=== PATIENT | female | born 1975 | race Caucasian/White ===

== ENCOUNTER 2017-03-17 11:07 | Emergency (ER) | payer OTHER ==
--- NOTE | 2017-03-17 12:11 | DIAGNOSTIC IMAGING REPORT ---
PROCEDURE: XR FINGER - LEFT INDICATION: TRAUMA TECHNIQUE: A P hand and two views of the left fifth digit. COMPARISON: None. FINDINGS: Normal mineralization. No fractures. Normal osseous alignment. No suspicious soft-tissue calcification or radiodense foreign bodies. Soft tissue swelling over the dorsum of the hand. IMPRESSION: 1. Intact left fifth finger 2. Soft tissue swelling over the dorsum of the hand
--- NOTE | 2017-03-17 12:30 | ED NURSING NOTES ---
Clinical Report - Nurses [facility] [address] [place] [address] 03/17/2017 11:08 Patient: GUILLAUME AVILEZ TRIAGE Triage time 1115. Acuity: LEVEL 4. Chief Complaint: INJURY TO THE LEFT HAND, LEFT LITTLE FINGER and LEFT RING FINGER. --11:31 Lin Nash R.N. 11:15 03/17/17. BP: 169/114. HR: 82. RR: 18. O2 saturation: 100%. Temp: 98.2 F. Pain level now: 05/04. --11:31 Lin Nash R.N. Weight: 107.5 kg stated. Height/Length: 65 inches Per Patient. BMI: 39.5. --11:26 Lin Nash R.N. Medications Ambien Oral 10 mg, at bedtime. --11:29 Lin Nash R.N. Effexor XR Oral 75 mg, daily . --11:30 Lin Nash R.N. Allergies No Known Drug Allergy. --11:24 Lin Nash R.N. History Arrived by private vehicle. Historian: patient. Unaccompanied. Primary physician (nia). This occurred last night. Mechanism of injury: she sustained a crush injury (caught hand in car door. redness to MP joints of 4th and 5th fingers, with pain and redness down all of 5th digit. some swelig and pain in 3rd and 4th digits as well). PAST MEDICAL HX: The patient has had a hysterectomy. ( depression, anxiety , OCD , chronic headaches). SURGERY HX: . Cholecystectomy. Had hysterectomy. SOCIAL HX: Never smoker. Occasional alcohol use. No drug use. --11:31 Lin Nash R.N. Interventions ID band on patient. To treatment room. --11:31 Lin Nash R.N. PHYSICAL ASSESSMENT 11:15. Ambulatory to room. GENERAL / NEURO / PSYCH: Oriented X 4. Alert. Appears in pain. EXTREMITIES: Limited ROM present. Capillary refill is less than 2 seconds in the extremities. Left hand: tenderness and swelling. Left ring finger: tenderness and swelling. Left little finger: tenderness and swelling. ( swelling and rednes to 4th and 5th MP jint areas, with redness down all of 5th digit, and part way down 4th digit). SKIN: Skin is warm and dry. --11:32 Lin Nash R.N. NURSING PROGRESS NOTES 12:23 03/17/2017 Motrin PO Tablets 800 mg given. Allergies verified and confirmed 5 rights. --12:28 Lin Nash R.N. 11:15. Cold pack applied. Patient gowned. Reassurance given. Patient identifiers checked. Call light placed in reach. Side rails up. Bed placed in lowest position. Patient ready for evaluation- chart flagged. --12:53 Lin Nash R.N. 11:40. ( port x-ray here to do finger films). --12:55 Lin Nash R.N. 12:23 meds given. --12:55 Lin Nash R.N. 12:30. Aluminum-foam finger splint applied to left little finger by tech. Distal pulses intact, sensation intact and motor within normal limits (by RICARDA Garcia). --12:56 Lin Nash R.N. DISPOSITION / DISCHARGE 12:40. Condition at departure: unchanged and stable. No learning barriers present. Discharge instructions provided and reviewed with the patient. Reviewed medication(s) (motrin, diclofenac). Reviewed splint care instructions (ice, elelvate,). Patient verbalized understanding. Written instructions provided in Kyrgyz. The patient was discharged home. She left the Emergency Department ambulatory and via private vehicle. Patient driving. --12:53 Lin Nash R.N. 12:40 03/17/17. BP: 138/91. HR: 82. RR: 18. O2 saturation: 98%. Temp: deferred. Pain level now: 810. --12:53 Lin Nash R.N. Locked/Released at 03/17/2017 12:57 by Lin Nash R.N.
--- NOTE | 2017-03-17 12:30 | ED CLINICAL REPORT ---
Clinical Report - Physicians/Mid Levels [facility] [address] [place] [address] 03/17/2017 11:08 Patient: GUILLAUME AVILEZ Time Seen: 11:20; initial patient contact. Arrived- By private vehicle. Historian- patient. HISTORY OF PRESENT ILLNESS Chief Complaint: Injury to the left 5th (little) finger. The injury happened last night. Occurred at home. The patient sustained a crush injury- caught hand in door. Patient is experiencing mild pain. Patient denies injury to the head or neck. REVIEW OF SYSTEMS The patient has had swelling, and tingling. No numbness, weakness or skin laceration. All systems otherwise negative, except as recorded above. PAST HISTORY hysterectomy depression, anxiety , OCD , chronic headaches. SOCIAL HISTORY Never smoker. Occasional alcohol use. No drug use. ADDITIONAL NOTES The nursing notes have been reviewed. PHYSICAL EXAM Vital Signs: 03/17/2017 11:15 BP: 169/114. HR: 82. RR: 18. O2 saturation: 100%. Temp: 98.2 F. Pain level now: 8. Have been reviewed. Hypertensive. Heart rate normal. Respiratory rate normal. Temperature normal. Oxygen saturation normal. Appearance: Alert. Oriented X3. No acute distress. Skin: Skin warm and dry. Skin intact. Extremities: Right little finger: mild erythema, moderate tenderness and swelling and small ecchymosis of the PIP joint; limited movement secondary to pain and swelling (diminished flexion and extension). Neurovascular intact distally. No deformity. No subungual hematoma or amputation present. No wrist injury. No hand injury. Hand and wrist exam otherwise negative. Extremities otherwise negative. Neuro, Vascular and Tendons: Vascular status intact. Sensation intact. Motor intact. Tendon function intact. Neuro: Oriented X 3. No motor deficit. No sensory deficit. LABS, X-RAYS, AND EKG Lt UE Digits X-ray: No fracture. Normal alignment. No bony lesion, air in the soft tissue or foreign body. Soft tissue swelling. Views: AP, lateral and oblique. Technique: good. The X-rays were independently viewed by me and interpreted contemporaneously by me. Prior films were not available for comparison. PROGRESS AND PROCEDURES Disposition: Discharged home in good and improved condition. Condition: good. CLINICAL IMPRESSION Single contusion with soft tissue hematoma to the left little finger.No left fingernail injury. INSTRUCTIONS Apply ice for 20 minutes four times a day until better. Don't apply ice directly to skin. Your Current Medications: CONTINUE TAKING THE FOLLOWING MEDICATIONS: Ambien Oral : 10 mg at bedtime. Effexor XR Oral : 75 mg daily. Prescription Medications: Diclofenac 50 mg tablets: take 1 tablet orally every 8 hours as needed for pain or stiffness. Dispense thirty (30). No refill. Follow-up: Follow up with your doctor in three days if not better. Call for an appointment. Screening today revealed the patient's blood pressure to be in the hypertensive range. The patient should follow up with a primary care provider for blood pressure management. (Electronically signed by Shaka Mayen Dr. 03/18/2017 8:53)
--- NOTE | 2017-03-17 12:30 | ED ORDER SUMMARY ---
..... Patient: GUILLAUME AVLIEZ OrderSheet [facility] VisitID: [id number] [place] [address] 42y, F Registration Date/Time: 03/17/2017 ORDER SHEET Weight: 107.5 kg (stated) Allergies: No Known Drug Allergy GENERAL ORDERS: Finger Left (5th) Urgent (11:26 03/17/2017 Katya Neff) (Ack 11:32 ENZOoerowen) (12:13 ENZOoerowen) Splint (Finger) (Left) (Small) (Aluminum Foam) (12:29 03/17/2017 DDean R.N. verbal order read back to Katya Neff) (12:49 DDean R.N.) MEDICATION ORDERS: Motrin PO 800 mg (NOW) (11:58 03/17/2017 Katya Neff) (Ack 12:22 DDean R.N.) (12:28 DDean R.N.) IV FLUIDS: ORDER SHEET NOTES: [Electronically signed by Lin Nash R.N. (12:57 03/17/2017)] [Electronically signed by Shaka Mayen Dr. (08:53 03/18/2017)] [Electronically locked/signed by Lin Nash R.N. (12:57 03/17/2017)]
--- NOTE | 2017-03-17 12:30 | ED NURSING NOTES ---
Clinical Report - Nurses [facility] [address] [place] [address] 03/17/2017 11:08 Patient: GUILLAUME AVILEZ TRIAGE Triage time 1115. Acuity: LEVEL 4. Chief Complaint: INJURY TO THE LEFT HAND, LEFT LITTLE FINGER and LEFT RING FINGER. --11:31 Lin Nash R.N. 11:15 03/17/17. BP: 169/114. HR: 82. RR: 18. O2 saturation: 100%. Temp: 98.2 F. Pain level now: 05/04. --11:31 Lin Nash R.N. Weight: 107.5 kg stated. Height/Length: 65 inches Per Patient. BMI: 39.5. --11:26 Lin Nash R.N. Medications Ambien Oral 10 mg, at bedtime. --11:29 Lin Nash R.N. Effexor XR Oral 75 mg, daily . --11:30 Lin Nash R.N. Allergies No Known Drug Allergy. --11:24 Lin Nash R.N. History Arrived by private vehicle. Historian: patient. Unaccompanied. Primary physician (nia). This occurred last night. Mechanism of injury: she sustained a crush injury (caught hand in car door. redness to MP joints of 4th and 5th fingers, with pain and redness down all of 5th digit. some swelig and pain in 3rd and 4th digits as well). PAST MEDICAL HX: The patient has had a hysterectomy. ( depression, anxiety , OCD , chronic headaches). SURGERY HX: . Cholecystectomy. Had hysterectomy. SOCIAL HX: Never smoker. Occasional alcohol use. No drug use. --11:31 Lin Nash R.N. Interventions ID band on patient. To treatment room. --11:31 Lin Nash R.N. PHYSICAL ASSESSMENT 11:15. Ambulatory to room. GENERAL / NEURO / PSYCH: Oriented X 4. Alert. Appears in pain. EXTREMITIES: Limited ROM present. Capillary refill is less than 2 seconds in the extremities. Left hand: tenderness and swelling. Left ring finger: tenderness and swelling. Left little finger: tenderness and swelling. ( swelling and rednes to 4th and 5th MP jint areas, with redness down all of 5th digit, and part way down 4th digit). SKIN: Skin is warm and dry. --11:32 Lin Nash R.N. NURSING PROGRESS NOTES 12:23 03/17/2017 Motrin PO Tablets 800 mg given. Allergies verified and confirmed 5 rights. --12:28 iLn Nash R.N. 11:15. Cold pack applied. Patient gowned. Reassurance given. Patient identifiers checked. Call light placed in reach. Side rails up. Bed placed in lowest position. Patient ready for evaluation- chart flagged. --12:53 Lin Nash R.N. 11:40. ( port x-ray here to do finger films). --12:55 Lin Nash R.N. 12:23 meds given. --12:55 Lin Nash R.N. 12:30. Aluminum-foam finger splint applied to left little finger by tech. Distal pulses intact, sensation intact and motor within normal limits (by RICARDA Garcia). --12:56 Lin Nash R.N. DISPOSITION / DISCHARGE 12:40. Condition at departure: unchanged and stable. No learning barriers present. Discharge instructions provided and reviewed with the patient. Reviewed medication(s) (motrin, diclofenac). Reviewed splint care instructions (ice, elelvate,). Patient verbalized understanding. Written instructions provided in Vietnamese. The patient was discharged home. She left the Emergency Department ambulatory and via private vehicle. Patient driving. --12:53 Lin Nash R.N. 12:40 03/17/17. BP: 138/91. HR: 82. RR: 18. O2 saturation: 98%. Temp: deferred. Pain level now: 810. --12:53 Lin Nash R.N. Locked/Released at 03/17/2017 12:57 by Lin Nash R.N.
--- NOTE | 2017-03-17 12:30 | ED CLINICAL REPORT ---
Clinical Report - Physicians/Mid Levels [facility] [address] [place] [address] 03/17/2017 11:08 Patient: GUILLAUME AVILEZ Time Seen: 11:20; initial patient contact. Arrived- By private vehicle. Historian- patient. HISTORY OF PRESENT ILLNESS Chief Complaint: Injury to the left 5th (little) finger. The injury happened last night. Occurred at home. The patient sustained a crush injury- caught hand in door. Patient is experiencing mild pain. Patient denies injury to the head or neck. REVIEW OF SYSTEMS The patient has had swelling, and tingling. No numbness, weakness or skin laceration. All systems otherwise negative, except as recorded above. PAST HISTORY hysterectomy depression, anxiety , OCD , chronic headaches. SOCIAL HISTORY Never smoker. Occasional alcohol use. No drug use. ADDITIONAL NOTES The nursing notes have been reviewed. PHYSICAL EXAM Vital Signs: 03/17/2017 11:15 BP: 169/114. HR: 82. RR: 18. O2 saturation: 100%. Temp: 98.2 F. Pain level now: 8. Have been reviewed. Hypertensive. Heart rate normal. Respiratory rate normal. Temperature normal. Oxygen saturation normal. Appearance: Alert. Oriented X3. No acute distress. Skin: Skin warm and dry. Skin intact. Extremities: Right little finger: mild erythema, moderate tenderness and swelling and small ecchymosis of the PIP joint; limited movement secondary to pain and swelling (diminished flexion and extension). Neurovascular intact distally. No deformity. No subungual hematoma or amputation present. No wrist injury. No hand injury. Hand and wrist exam otherwise negative. Extremities otherwise negative. Neuro, Vascular and Tendons: Vascular status intact. Sensation intact. Motor intact. Tendon function intact. Neuro: Oriented X 3. No motor deficit. No sensory deficit. LABS, X-RAYS, AND EKG Lt UE Digits X-ray: No fracture. Normal alignment. No bony lesion, air in the soft tissue or foreign body. Soft tissue swelling. Views: AP, lateral and oblique. Technique: good. The X-rays were independently viewed by me and interpreted contemporaneously by me. Prior films were not available for comparison. PROGRESS AND PROCEDURES Disposition: Discharged home in good and improved condition. Condition: good. CLINICAL IMPRESSION Single contusion with soft tissue hematoma to the left little finger.No left fingernail injury. INSTRUCTIONS Apply ice for 20 minutes four times a day until better. Don't apply ice directly to skin. Your Current Medications: CONTINUE TAKING THE FOLLOWING MEDICATIONS: Ambien Oral : 10 mg at bedtime. Effexor XR Oral : 75 mg daily. Prescription Medications: Diclofenac 50 mg tablets: take 1 tablet orally every 8 hours as needed for pain or stiffness. Dispense thirty (30). No refill. Follow-up: Follow up with your doctor in three days if not better. Call for an appointment. Screening today revealed the patient's blood pressure to be in the hypertensive range. The patient should follow up with a primary care provider for blood pressure management. (Electronically signed by Shaka Mayen Dr. 03/18/2017 8:53)
--- NOTE | 2017-03-17 12:30 | ED ORDER SUMMARY ---
..... Patient: GUILLAUME AVILEZ OrderSheet [facility] VisitID: [id number] [address] [place] [address] 42y, F Registration Date/Time: 03/17/2017 ORDER SHEET Weight: 107.5 kg (stated) Allergies: No Known Drug Allergy GENERAL ORDERS: Finger Left (5th) Urgent (11:26 03/17/2017 Katya Neff) (Ack 11:32 ENZOoerowen) (12:13 ENZOoerowen) Splint (Finger) (Left) (Small) (Aluminum Foam) (12:29 03/17/2017 DDean R.N. verbal order read back to Katya Neff) (12:49 DDean R.N.) MEDICATION ORDERS: Motrin PO 800 mg (NOW) (11:58 03/17/2017 Katya Neff) (Ack 12:22 DDean R.N.) (12:28 DDean R.N.) IV FLUIDS: ORDER SHEET NOTES: [Electronically signed by Lin Nash R.N. (12:57 03/17/2017)] [Electronically signed by Shaka Mayen Dr. (08:53 03/18/2017)] [Electronically locked/signed by Lin Nash R.N. (12:57 03/17/2017)]
--- NOTE | 2017-03-18 08:53 | ED MED RECONCILIATION SUMMARY ---
Patient: GUILLAUME AVILEZ Medication Reconciliation Report [facility] VisitID: [id number] [address] [place] [address] 42y, F Registration Date/Time: 03/17/2017 Weight: 107.5 kg Height/Length: 65 in. BMI: 39.5 ALLERGIES: No Known Drug Allergy The patient's Home Medications are listed below: CONTINUE TAKING THE FOLLOWING MEDICATIONS: Ambien Oral 10 mg, at bedtime Effexor XR Oral 75 mg, daily The source(s) of the original Home Medication information: Not obtained. The following Medications were given to the patient in the Emergency Department: Motrin [PO] PO 800 mg, administered: 03/17/2017 12:23:00 PM The following Medications were prescribed to the patient: Diclofenac 50 mg tablets: take 1 tablet orally every 8 hours as needed for pain or stiffness. Dispense thirty (30). No refill. -- Shaka Mayen Dr.
--- NOTE | 2017-03-18 08:53 | ED MAR SUMMARY ---
..... Medication Administration Record [facility] [address] [place] [address] Patient: GUILLAUME AVILEZ Visit ID: [id number] 42y, F Weight: 107.5 kg Height/Length: 65 in BMI: 39.5 ALLERGIES: No Known Drug Allergy Given 12:23 03/17/2017 Saad, Yasmin Ceballos Medication Administered: MOTRIN [PO], Dose: 800 mg Tablets PO. Medication Ordered: Motrin PO 800 mg (NOW).
--- NOTE | 2017-03-18 08:53 | ED DISCHARGE INSTRUCTIONS ---
Patient: GUILLAUME AVILEZ General Instructions [facility] VisitID: [id number] [place] [address] 42y, F Registration Date/Time: 03/17/2017 Single contusion with soft tissue hematoma to the left little finger.No left fingernail injury. INSTRUCTIONS Apply ice for 20 minutes four times a day until better. Don't apply ice directly to skin. Your Current Medications: CONTINUE TAKING THE FOLLOWING MEDICATIONS: Ambien Oral : 10 mg at bedtime. Effexor XR Oral : 75 mg daily. Prescription Medications: Diclofenac 50 mg tablets: take 1 tablet orally every 8 hours as needed for pain or stiffness. Dispense thirty (30). No refill. Follow-up: Follow up with your doctor in three days if not better. Call for an appointment. Screening today revealed the patient's blood pressure to be in the hypertensive range. The patient should follow up with a primary care provider for blood pressure management. ADDITIONAL INFORMATION Contusion,Soft Tissue You have a CONTUSION, which is a bruise with swelling and some bleeding under the skin. There are no broken bones. This injury takes a few days to a few weeks to heal. Home Care: 1) Keep the injured part elevated to reduce pain and swelling. This is especially important during the first 48 hours. 2) Make an ice pack (ice cubes in a plastic bag, wrapped in a towel) and apply for 20 minutes every 1-2 hours the first day. Continue this 3-4 times a day until the pain and swelling goes away. 3) You may use acetaminophen (Tylenol) or ibuprofen (Motrin, Advil) to control pain, unless another pain medicine was prescribed. [ NOTE : If you have chronic liver or kidney disease or ever had a stomach ulcer or GI bleeding, talk with your doctor before using these medicines.] Follow Up with your doctor or this facility if you are not improving within the next THREE days. [NOTE: If X-rays were taken, they will be reviewed by a radiologist. You will be notified of any new findings that may affect your care.] Get Prompt Medical Attention if any of the following occur: -- Pain or swelling increases -- Injured arm or leg becomes cold, blue, numb or tingly -- Redness, warmth or drainage from the skin You have been given the following additional information: Contusion, Soft Tissue (Electronically signed by Shaka Mayen Dr. 03/18/2017 8:53)
--- NOTE | 2017-03-18 08:53 | ED MAR SUMMARY ---
..... Medication Administration Record [facility] [address] [place] [address] Patient: GUILLAUME AVILEZ Visit ID: [id number] 42y, F Weight: 107.5 kg Height/Length: 65 in BMI: 39.5 ALLERGIES: No Known Drug Allergy Given 12:23 03/17/2017 Saad, Yasmin Ceballos Medication Administered: MOTRIN [PO], Dose: 800 mg Tablets PO. Medication Ordered: Motrin PO 800 mg (NOW).
--- NOTE | 2017-03-18 08:53 | ED MED RECONCILIATION SUMMARY ---
Patient: GUILLAUME AVILEZ Medication Reconciliation Report [facility] VisitID: [id number] [address] [place] [address] 42y, F Registration Date/Time: 03/17/2017 Weight: 107.5 kg Height/Length: 65 in. BMI: 39.5 ALLERGIES: No Known Drug Allergy The patient's Home Medications are listed below: CONTINUE TAKING THE FOLLOWING MEDICATIONS: Ambien Oral 10 mg, at bedtime Effexor XR Oral 75 mg, daily The source(s) of the original Home Medication information: Not obtained. The following Medications were given to the patient in the Emergency Department: Motrin [PO] PO 800 mg, administered: 03/17/2017 12:23:00 PM The following Medications were prescribed to the patient: Diclofenac 50 mg tablets: take 1 tablet orally every 8 hours as needed for pain or stiffness. Dispense thirty (30). No refill. -- Shaka Mayen Dr.
== END 2017-03-17 12:40 | disposition home or self-care (01) ==
LOC: ED SRH 11:07
DX: S60.052A Contusion of left little finger without damage to nail, initial encounter (principal); W23.0XXA Caught, crushed, jammed, or pinched between moving objects, initial encounter; Y93.89 Activity, other specified; Y92.019 Unspecified place in single-family (private) house as the place of occurrence of the external cause; Y99.8 Other external cause status; Z79.899 Other long term (current) drug therapy